=== PATIENT | male | born 1955 | race Caucasian/White ===

== ENCOUNTER 2016-07-20 10:23 | Inpatient (IN) ==
--- NOTE | 2016-07-20 11:00 | Emergency Department Note ---
START Narrative - START START: I examined this patient and my medical decision-making was reviewed with the CASINO GAMES DEALER/PA/Advanced Practice Nurse/Resident Physician. I agree with the documented findings, disposition and treatment plan as described except to the extent set forth below. I did see the patient spoke with them. Chest x-ray results pending. He does have decreased breath sounds bilaterally does have a history of COPD 1100 I did review the patient's EKG showing normal sinus rhythm with rate of 66 without acute ischemic change. 1102 Procedure: I did discuss risks and benefits - the patient does consent to placement of a right-sided chest tube. Timeout procedure was done. I did use a gown and facemask and shield and did place a right-sided Heimlich valve midclavicular line over the fourth rib after prepping and draping in the usual sterile fashion. I used 10ml of 1% lidocaine. There is good mist in the tube. This was attached to the waterseal and initially did have bubbles but then they stopped. The post procedure chest x-ray does not show significant reexpansion however now that the tubes have been readjusted and the bubbles in the Pleur- evac have resumed a repeat chest x-ray will be done. Results pending. I did speak with Dr. Guadarrama from thoracic the patient for consultation mouses spoke with Dr. Gomez who is the hospitalist who accepted the patient for admission 1255 I spoke with Thierry who feels like the lung is minimally more expanded on his view and rec IR place a CT more inferior so I spoke with IR and they will place tube today 1313
--- NOTE | 2016-07-20 13:17 | Emergency Department Note ---
Disposition Clinical Impression: Pneumothorax Qualifiers: Pneumothorax type: unspecified pneumothorax Qualified Code(s): J93.9 - Pneumothorax, unspecified Disposition: Admitted As Inpatient Condition: Fair Time of Disposition: 12:50 SOB HPI - General Chief Complaint: ED Shortness of Breath/Dyspnea Stated Complaint: JORGE L-poss pneumothorax Time Seen by Provider: 07/20/16 10:44 Source: patient, family Limitations: no limitations - History of Present Illness The patient is a 60-year-old male with past medical history significant for COPD , lung cancer, current tobacco abuse presents five-day history of right-sided chest pain. Patient states that the pain is worse with lying flat. Pain is better by sitting upright. Patient describes pain as sharp sensation to right chest and right upper quadrant. Patient states that he also woke up 4 mornings ago with gasping for air. He shows states that she placed the patient fresh air and set up his home oxygen, which she has not used for the last 2 years. Patient admits associated racing heart during the episode of dyspnea. Patient denies wheezing, denies cough. Patient was seen and evaluated for right upper quadrant pain and had a CT abdomen and pelvis. CT demonstrated a right pneumothorax. Patient was called today, and instructed to present to the emergency department for further management. - Related Data Home Medications Medication Instructions Recorded Confirmed Cholecalciferol (D-3) [Vitamin D] 2,000 unit PO DAILY 07/20/16 07/20/16 Allergies Allergy/AdvReac Type Severity Reaction Status Date / Time No Known Allergies Allergy Verified 07/20/16 10:30 All systems ED: reviewed and negative except as stated. Constitutional: Reports: as per HPI Eyes: Reports: as per HPI ENT ED: Reports: as per HPI Cardiovascular: Reports: as per HPI Respiratory: Reports: as per HPI Gastrointestinal: Reports: as per HPI Genitourinary: Reports: as per HPI Musculoskeletal: Reports: as per HPI Integumentary: Reports: as per HPI Neurological: Reports: as per HPI Psychiatric: Reports: as per HPI Endocrine: Reports: as per HPI Hematological/Lymphatic: Reports: as per HPI Allergic/Immunologic: Reports: as per HPI Past Medical History - Past Medical History Medical history: Reports: cancer, COPD, DVT, other Surgical history: Reports: herniorrhaphy, orthopedic, other, other Psychiatric history: Reports: no psych history - Social History Smoking Status: Current every day smoker Smokeless Tobacco Status: No Alcohol use: Reports: none Drug use: Reports: none Physical Exam - General Limitations: no limitations General appearance: alert, in no apparent distress - Head Head exam: atraumatic, normocephalic - Neck Neck exam: Present: normal inspection, full ROM, trachea midline, other (No carotid bruit) - Chest Chest inspection: Present: normal inspection, symmetric chest wall rise - Respiratory Respiratory exam: Present: other (Diminished breath sounds bilaterally. No wheezing, rales, or rhonchi.) - Cardiovascular Cardiovascular exam: Present: regular rate, normal rhythm, +S1, +S2. Absent: systolic murmur, diastolic murmur - Abdominal Exam Abdominal exam: Present: soft, Non-Tender, normal bowel sounds. Absent: distention, guarding - Extremities Exam Extremities exam: Present: normal inspection, full ROM - Back Exam Back exam: Present: normal inspection, full ROM - Neurological Exam Neurological exam: Present: alert, oriented X3 - Psychiatric Psychiatric exam: Present: normal affect, normal mood - Skin Skin exam: Present: warm, dry, intact Course Vital Signs Temperature 97.8 F 07/20/16 10:27 Pulse Rate 76 07/20/16 10:27 Respiratory Rate 18 07/20/16 10:27 Blood Pressure 129/81 07/20/16 10:27 O2 Sat by Pulse Oximetry 95 07/20/16 10:27 Temperature 97.8 F 07/20/16 10:27 Pulse Rate 67 07/20/16 12:33 Respiratory Rate 18 07/20/16 12:33 Blood Pressure 152/82 07/20/16 12:33 O2 Sat by Pulse Oximetry 97 07/20/16 12:33 Oxygen Delivery Oxygen Delivery Room Air Shortness of Breath/Dyspnea - [facility] Narrative Medical decision making narrative: Patient presented with a chest suggestive of right pneumothorax. On exam, patient has decreased breath sounds to bilateral lungs. Chest x-ray today demonstrates right pneumothorax with mild leftward shift of the mediastinum unchanged per previous exam. We will proceed with chest tube placement.
[2016-07-20] MEDS ORDERED: Naloxone 0.4 MG/ML INJ IVP PRN ×2 (13:31→14:47)
--- NOTE | 2016-07-20 14:23 | Electrocardiograph Report ---
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
[2016-07-20] MEDS ORDERED: Ondansetron 4 MG/2 ML VIAL IVP PRN (14:47)
[2016-07-20] MEDS ORDERED: *HR* Morphine 2 MG/ML SYRINGE IVP PRN (14:47)
[2016-07-20] MEDS ORDERED: Acetaminophen 325 MG TABLET PO PRN (14:47)
--- NOTE | 2016-07-20 15:00 | Internal Med History&Physical ---
Date of Encounter: 07/20/16 Time of Encounter: 14:57 Assessment and Plan (1) Pneumothorax Current visit: Yes Status: Acute Likely related to severe COPD, right-sided pneumothorax Continue suction to the chest tube, interventional radiology to place a second to Followed by the cardiothoracic surgery services Morphine for pain Omeprazole for GI prophylaxis and sequential compression devices for DVT prophylaxis. The patient will be admitted as inpatient, expected to stay more than 2 midnights. Full code. Time spent on this admission 40 minutes Qualifiers: Pneumothorax type: spontaneous, tension Qualified Code(s): J93.0 - Spontaneous tension pneumothorax (2) Cancer with unknown primary site Current visit: No Status: Chronic Metastatic cancer of unknown primary status post chemotherapy and right upper lobe of lobectomy Followed by oncology as outpatient (3) History of biliary stent insertion Current visit: No Status: Chronic Followed as outpatient History of chronic pneumobilia Considers starting antibiotics if signs of infection Order CBC and CMP (4) COPD (chronic obstructive pulmonary disease) Current visit: No Status: Chronic No exacerbation, continue duo nebs Qualifiers: COPD type: unspecified COPD Qualified Code(s): J44.9 - Chronic obstructive pulmonary disease, unspecified (5) Tobacco abuse Current visit: No Status: Acute Smoking cessation counseling given for 5 min . Nicotine patch ordered (6) Lung cancer Current visit: No Status: Acute Qualifiers: Laterality: right Lung location: unspecified part of lung Qualified Code( s): C34.91 - Malignant neoplasm of unspecified part of right bronchus or lung Internal Medicine - H&P: HPI Chief complaint: Shortness of breath Admitted From: Emergency Dept History of present illness: Mr. Eubanks is a 60 year old male with a past medical history of metastatic cancer with no primary found status post chemotherapy and partial lung resection , COPD not oxygen dependent, DVT in the left upper extremity in the past, alcohol use/abuse, tobacco use who had an evaluation yesterday due to chronic right upper quadrant pain. Apparently an ultrasound showed pneumobilia, CT scan of the abdomen was ordered and confirmed the diagnosis of chronic pneumobilia in the left hepatic lobe, at the same time a right-sided pneumothorax was evidenced. The patient was referred to the emergency room and a chest tube was plan placed in the anterior upper thorax. Patient is complaining of some mild pain 2 out of 10 in intensity. The chest x-ray taken after the placement of the chest tube did not show any improvement. Patient has been evaluated by the cardiothoracic surgery team and another chest tube will be placed by interventional radiology service. Blood pressure is 152/82, denies any use other symptoms otherwise Past Med Surg Social Fam HX - Past Medical History Medical history: cancer (Metastatic cancer to the pancreas, stomach, neck and lung status post lung partial resection of the upper right lobe and chemotherapy ), COPD (Not oxygen dependent), DVT (In the past, left upper extremity), hypertension, other (Tobacco use, alcohol abuse, chronic pneumobilia, GERD, depression, biliary obstruction) Psychiatric history: no psych history - Past Surgical History Surgical History: herniorrhaphy, orthopedic, other, other (Biliary stents is status post extraction, left lung partial lobectomy, ERCP, left lower extremity fracture) - Social History Smoking Status: Current every day smoker Packs per day: 5 cigarettes daily Smokeless Tobacco Status: No Alcohol use: none (Quit drinking 3 years ago, used to drink heavily) Drug use: none - Family History Father Living Status: Still Living Hx Family Endocrine Disorder: Yes - Additional Family History Additional family history: Father with hypertension and diabetes Internal Medicine - H&P: Meds Cholecalciferol (D-3) [Vitamin D] 2,000 unit PO DAILY 07/20/16 [History] Allergies No Known Allergies Allergy (Verified 07/20/16 10:30) All Systems PM: A 10-system review of systems was performed and is negative for pertinent findings except as documented above in the HPI. Review of systems: Feels still short of breath. Other systems out of the 10 reviewed were negative - Constitutional Vitals: Temp Pulse Resp BP Pulse Ox 97.8 F 63 18 131/87 97 07/20/16 10:27 07/20/16 14:02 07/20/16 14:02 07/20/16 14:02 07/20/16 14:02 General appearance: Present: A&O X 3, underweight - Head Head exam: Present: atraumatic, normocephalic - Eye Eye exam: Present: PERRL, conjuntiva pink, sclera anicteric Pupils: Present: PERRL - Neck Neck exam general surgery: Present: supple, trachea midline. Absent: lymphadenopathy - Respiratory Respiratory exam: Present: decreased breath sounds, CTAB. Absent: accessory muscle use, rales, rhonchi, wheezes Additional comments: Right upper chest chest tube - Cardiovascular Cardiovascular exam: Present: RRR, +S1, +S2. Absent: diastolic murmur, gallop, rubs, systolic murmur - GI/Abdominal GI/Abdominal exam: Present: normal bowel sounds, soft, no peritoneal signs. Absent: distended, tenderness - Extremities Exam Extremities exam: Present: warm, radial pulses palpable and symetrical. Absent : calf tenderness, cyanotic, pedal edema - Neurological Exam Neurological exam: Present: CN II-XII intact, oriented X3, no focal deficits. Absent: pronater drift, facial droop, speech deficit - Skin Skin exam: Present: dry, intact
[2016-07-20] MEDS: 0.9 % Sodium Chloride 500 ML IVC SCH ×2 (15:28→23:48)
[2016-07-20] MEDS: Nicotine 14 MG PATCH.TD24 TD SCH (15:32)
[2016-07-20] MEDS: Ipratropium/Albuterol Neb 3 ML IH SCH ×2 (16:08→21:24)
[2016-07-20 16:10] LABS: Basophils % 0.4 %; Eosinophils # 0.2 K/mcL (0.0-0.6); Eosinophils % 2.5 %; Hemoglobin 14.6 g/dL (12.9-16.9); Immature Granulocytes % 0.3 % (0-4); Lymphocytes # 1.4 K/mcL (0.6-4.6); Lymphocytes % 20.6 %; Mean Corpuscular HGB Conc 33.2 g/dL (31.6-35.5); Mean Corpuscular Hemoglobin 31.3 pg (28.0-33.3); Mean Corpuscular Volume 94.2 fL (83.0-100.0); Mean Platelet Volume 9.2 fL (9.4-12.4); Monocytes # 0.5 K/mcL (0.0-1.3); Monocytes % 7.8 %; Neutrophils # 4.7 K/mcL (1.6-8.9); Platelet Count 211 K/mcL (140-400); Red Blood Count 4.67 M/mcL (4.19-5.50); Red Cell Distribution Width 13.4 % (11.5-14.5); Segmented Neutrophils % 68.4 %
[2016-07-20] MEDS: *HR* Morphine 2 MG/ML SYRINGE IVP PRN ×3 (16:24→23:42)
[2016-07-20 16:28] LABS: Alanine Aminotransferase 18 Units/L (0-55); Albumin 3.7 g/dL (3.5-5.0); Alkaline Phosphatase 68 Units/L (38-126); Aspartate Amino Transferase 23 Units/L (5-34); BUN/Creatinine Ratio 17 (6-26); Bilirubin,Total 0.4 mg/dL (0.2-1.2); Blood Urea Nitrogen 14 mg/dL (8-26); Calcium 9.4 mg/dL (8.6-10.8); Carbon Dioxide 26 mEq/L (19-29); Chloride 106 mEq/L (98-109); Globulin 3.8 g/dL (2.4-3.5); Glucose 100 mg/dL (70-99); Osmolality,Calculated 291 (280-300); Potassium 4.3 mEq/L (3.5-4.5); Sodium 140 mEq/L (136-145); Total Protein 7.5 g/dL (6.0-8.3); eGFR For African Americans > 60 (> 60); eGFR For Non-African Americans > 60 (> 60)
--- NOTE | 2016-07-20 16:53 | Cardiothoracic Consult Note ---
Date of Encounter: 07/20/16 Time of Encounter: 16:53 Assessment and Plan (1) Pneumothorax Current Visit: Yes Status: Acute The patient is a 60-year-old man with a history of metastatic cancer from an unknown primary who was admitted to [facility] for treatment of a spontaneous right pneumothorax. He had a chest tube placed in the emergency department as well as a second one placed in the intervention radiology department due to incomplete reexpansion after the first chest tube. Both chest tubes are currently on suction. The chest x-ray should be followed in the morning and daily until the chest tubes are removed. The assessment and plan as outlined above was discussed with the patient and/or family members who expressed understanding and agreement. All questions were answered. Qualifiers: Pneumothorax type: spontaneous, tension Qualified Code(s): J93.0 - Spontaneous tension pneumothorax - History of Present Illness Consult date: 07/20/16 Requesting physician: Brad Shen Consult reason: Chest tube management. Chief complaint: Shortness of breath, dyspnea on exertion. History of present illness: Mr. Eubanks is a 60 year old man with a history of metastatic cancer due to an unknown primary site. The patient underwent a previous right upper lobe wedge resection at the [facility]. He experienced sudden onset of right-sided chest pain on Sunday, July 15, 2016. At that time the patient states that he was walking from the bathroom when he had sudden onset of right sided chest pain, shortness of breath, and dyspnea exertion. Initially he did not seek medical attention and instead used oxygen which he had from his previous lung resection. This helped improve the symptoms; however, the patient noticed profound shortness of breath and dyspnea exertion with any type of activity. He contacted his primary care physician who examined the patient and thought that he might have cholecystitis. Abdominal ultrasound revealed a normal gallbladder and the presence of "air around his pancreas". A follow-up abdominal CT showed normal intra-abdominal anatomy and a right spontaneous pneumothorax. The patient was called and told to come to the emergency department for evaluation. During the evaluation at [facility] emergency department the patient was noted to have a large right pneumothorax on chest x-ray. A small chest tube was placed in the emergency department with only minimal resolution of the right pneumothorax. A second chest tube was placed inferiorly in the interventional radiology department. The chest tubes were placed suction and I was asked to evaluate the patient for chest tube management. Past Med Surg Social Fam HX - Past Medical History Medical history: cancer (Metastatic cancer to the pancreas, stomach, neck and lung status post lung partial resection of the upper right lobe and chemotherapy ), COPD (Not oxygen dependent), DVT (In the past, left upper extremity), hypertension, other (Tobacco use, alcohol abuse, chronic pneumobilia, GERD, depression, biliary obstruction) Psychiatric history: no psych history - Past Surgical History Surgical History: herniorrhaphy (Left inguinal herniorrhaphy), orthopedic, other (Internal fixation of right lower extremity tibial/fibula fracture), other (Biliary stents S/P extraction, right lung partial lobectomy, ERCP, ) - Social History Smoking Status: Current every day smoker Packs per day: 5 cigarettes daily Smokeless Tobacco Status: No Alcohol use: none (Quit drinking 3 years ago, used to drink heavily) Drug use: none Occupational status: retired Current living situation: Home - Independent Activity Level: Independent ambulation Recent Out of Country Travel Within the Last 8 Weeks: No Exposure or Possible Exposure to Illness During Travel: No - Family History Father Living Status: Still Living Hx Family Endocrine Disorder: Yes Medications and Allergies Cholecalciferol (D-3) [Vitamin D] 2,000 unit PO DAILY 07/20/16 [History] Allergies No Known Allergies Allergy (Verified 07/20/16 10:30) All Systems Review: A 10-system review of systems was performed and is negative for pertinent findings except as documented above in the HPI. Physical Examination Vital Signs, Last 4 Hours Temp Pulse Resp BP Pulse Ox 07/20/16 16:08 18 97 07/20/16 15:47 97.7 F 61 18 147/84 97 General: Conversant, No Apparent Distress HEENT: Atraumatic, Normocephaly, Trachea midline Neck: No JVD, Normal carotid pulses Cardiac: Reg Rate and Rhythm, Normal S1 and S2, No Murmur Lungs: Normal Breath Sounds, No Wheeze, Rales, Rhonchi Neuro: Alert and responsive, No focal deficits noted, Motor nerves intact, Sensory nerves intact Vascular: Normal capillary refill Abdomen: Soft, Non-tender Skin: No rashes noted on visualized skin Musculoskeletal: No Chest Wall Tenderness Extremities: No Clubbing, No Cyanosis, No Edema, Normal Pulses Results 07/20/16 15:58 05/25/17 15:58 Lab Results, Last 24 hours 07/20/16 07/20/16 15:58 15:58 WBC 6.8 Hgb 14.6 Hct 44.0 Plt Count 211 Sodium 140 Potassium 4.3 Chloride 106 Carbon Dioxide 26 BUN 14 Creatinine 0.84 Glucose 100 H Calcium 9.4 Total Bilirubin 0.4 AST 23 ALT 18 Alkaline Phosphatase 68 - Imaging Chest Xray: image reviewed (Right pneumothorax.) Consult Discharge Plan - Plan Referrals: Meliza Cotton, OPERATIONS RESEARCH ANALYST [Primary Care Provider] -
[2016-07-21] MEDS: *HR* Morphine 2 MG/ML SYRINGE IVP PRN ×7 (02:50→22:09)
[2016-07-21 04:13] LABS: Hematocrit 39.5 % (37.5-50.1); Hemoglobin 13.3 g/dL (12.9-16.9); Mean Corpuscular HGB Conc 33.7 g/dL (31.6-35.5); Mean Corpuscular Hemoglobin 31.7 pg (28.0-33.3); Mean Platelet Volume 9.9 fL (9.4-12.4); Platelet Count 179 K/mcL (140-400); Red Cell Distribution Width 13.7 % (11.5-14.5)
[2016-07-21] MEDS: Ipratropium/Albuterol Neb 3 ML IH SCH ×4 (04:24→21:16)
[2016-07-21 04:25] LABS: Alanine Aminotransferase 13 Units/L (0-55); Albumin/Globulin Ratio 0.9 (1.1-2.2); Alkaline Phosphatase 57 Units/L (38-126); Aspartate Amino Transferase 20 Units/L (5-34); BUN/Creatinine Ratio 20 (6-26); Bilirubin,Total 0.4 mg/dL (0.2-1.2); Blood Urea Nitrogen 15 mg/dL (8-26); Calcium 8.4 mg/dL (8.6-10.8); Carbon Dioxide 24 mEq/L (19-29); Chloride 111 mEq/L (98-109); Globulin 3.5 g/dL (2.4-3.5); Glucose 92 mg/dL (70-99); Osmolality,Calculated 294 (280-300); Sodium 142 mEq/L (136-145); Total Protein 6.5 g/dL (6.0-8.3); eGFR For African Americans > 60 (> 60); eGFR For Non-African Americans > 60 (> 60)
[2016-07-21] MEDS: Nicotine 14 MG PATCH.TD24 TD SCH (09:42)
[2016-07-21] MEDS: Cholecalciferol (D-3) 1,000 UNIT TABLET PO SCH (09:42)
[2016-07-21] MEDS: 0.9 % Sodium Chloride 500 ML IVC SCH ×2 (09:45→19:00)
--- NOTE | 2016-07-21 10:12 | Internal Med Progress Note ---
<Abdiel Engel P - Last Filed: 07/21/16 14:49> Date of Encounter: 07/21/16 - Constitutional Vitals: Temp Pulse Resp BP Pulse Ox 97.7 F 60 18 121/77 98 07/21/16 07:00 07/21/16 07:00 07/21/16 07:00 07/21/16 07:00 07/21/16 09:00 Internal Medicine: Result - Labs CBC & Chem 7: 07/21/16 03:58 07/21/16 03:58 Labs: Short CBC 07/20/16 07/21/16 Range/Units 15:58 03:58 WBC 6.8 6.7 (4.3-11.1) K/mcL Hgb 14.6 13.3 (12.9-16.9) g/dL Hct 44.0 39.5 (37.5-50.1) % Plt Count 211 179 (140-400) K/mcL Neutrophils # 4.7 (1.6-8.9) K/mcL BMP 07/20/16 07/21/16 15:58 03:58 Sodium 140 142 Potassium 4.3 4.0 Chloride 106 111 H Carbon Dioxide 26 24 BUN 14 15 Creatinine 0.84 0.74 Glucose 100 H 92 Calcium 9.4 8.4 L Liver Function 07/20/16 07/21/16 Range/Units 15:58 03:58 Total Bilirubin 0.4 0.4 (0.2-1.2) mg/dL AST 23 20 (5-34) Units/L ALT 18 13 (0-55) Units/L Alkaline Phosphatase 68 57 (38-126) Units/L Albumin 3.7 3.0 L (3.5-5.0) g/dL - Impressions Impressions Chest X-Ray 07/21/16 09:43 IMPRESSION: 1. Interval addition of a right lateral pigtail pleural catheter. 2. Redemonstration of COPD. Interval resolution of a right lateral lung base pneumothorax. D/ / 07/21/2016 10:09:25 Jeremiah Earl MD / verónica Interpreting Provider: Jeremiah Earl MD Consult Discharge Plan - Plan Referrals: Meliza Cotton, NURSE SITTER [Primary Care Provider] - - Attending Attestation I examined this patient and my medical decision-making was reviewed with the BRAILLE PROOFREADER/PA/Advanced Practice Nurse/Resident Physician. I agree with the documented findings, disposition and treatment plan as described except to the extent set forth below. <Royce Oshea - Last Filed: 07/21/16 15:02> Date of Encounter: 07/21/16 Time of Encounter: 09:00 - Assessment and plan (1) Pneumothorax Current Visit: Yes Status: Acute Assessment and plan: The patient's right spontaneous pneumothorax is resolving. Continue chest tube to suction until the right apical pneumothorax resolves. Chest x-ray in the morning. Supplemental O2 via nasal cannula. Cardiothoracic consulted, appreciate their continued evaluation and recommendations. Qualifiers: Pneumothorax type: spontaneous, tension Qualified Code(s): J93.0 - Spontaneous tension pneumothorax (2) COPD (chronic obstructive pulmonary disease) Current Visit: No Status: Chronic Assessment and plan: Stable, no acute exacerbation. Duonebs scheduled. Qualifiers: COPD type: unspecified COPD Qualified Code(s): J44.9 - Chronic obstructive pulmonary disease, unspecified (3) Tobacco abuse Current Visit: No Status: Acute Assessment and plan: Encouraged to quit, briefly discuss cessation options. Patient showing interest in cessation. (4) History of cancer Current Visit: Yes Status: Chronic Assessment and plan: Stable. 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 Chemo in 2015. Remission for 1.5 years. (5) DVT prophylaxis Current Visit: No Status: Acute - Subjective Interval history: Patient seen and examined at bedside. States he is feeling much better and breathing better. He has two chest tubes in right side of chest, states mild tenderness, but no acute distress. - Constitutional Vitals: Temp Pulse Resp BP Pulse Ox 97.7 F 60 18 121/77 98 07/21/16 07:00 07/21/16 07:00 07/21/16 07:00 07/21/16 07:00 07/21/16 07:00 General appearance: Present: cooperative, A&O X 3, no acute distress, underweight, answers questions appropriately - Head Head exam: Present: atraumatic, normocephalic - Eye Eye exam: Present: EOMI, conjuntiva pink - ENT ENT exam: Present: mucous membranes moist - Neck Neck exam general surgery: Present: full ROM - Respiratory Respiratory exam: Present: CTAB. Absent: rales, respiratory distress, rhonchi, stridor, wheezes Additional comments: two chest tubes present; one in anterior right chest wall, one in lateral chest wall. - Cardiovascular Cardiovascular exam: Present: RRR - GI/Abdominal GI/Abdominal exam: Present: soft. Absent: firm, guarding, tenderness - Extremities Exam Extremities exam: Present: warm. Absent: cyanotic, pedal edema, tenderness - Neurological Exam Neurological exam: Present: alert, oriented X3, no focal deficits - Psychiatric Psychiatric exam: Present: normal affect, normal mood - Skin Skin exam: Present: dry, warm. Absent: cyanosis, rash Internal Medicine: Result - Labs CBC & Chem 7: 07/21/16 03:58 07/21/16 03:58 Labs: Short CBC 07/20/16 07/21/16 Range/Units 15:58 03:58 WBC 6.8 6.7 (4.3-11.1) K/mcL Hgb 14.6 13.3 (12.9-16.9) g/dL Hct 44.0 39.5 (37.5-50.1) % Plt Count 211 179 (140-400) K/mcL Neutrophils # 4.7 (1.6-8.9) K/mcL BMP 07/20/16 07/21/16 15:58 03:58 Sodium 140 142 Potassium 4.3 4.0 Chloride 106 111 H Carbon Dioxide 26 24 BUN 14 15 Creatinine 0.84 0.74 Glucose 100 H 92 Calcium 9.4 8.4 L Liver Function 07/20/16 07/21/16 Range/Units 15:58 03:58 Total Bilirubin 0.4 0.4 (0.2-1.2) mg/dL AST 23 20 (5-34) Units/L ALT 18 13 (0-55) Units/L Alkaline Phosphatase 68 57 (38-126) Units/L Albumin 3.7 3.0 L (3.5-5.0) g/dL - Impressions Impressions Chest X-Ray 07/21/16 09:43 IMPRESSION: 1. Interval addition of a right lateral pigtail pleural catheter. 2. Redemonstration of COPD. Interval resolution of a right lateral lung base pneumothorax. D/ / Jeremiah Earl MD / Jeremiah Earl MD Interpreting Provider: Jeremiah Earl MD
--- NOTE | 2016-07-21 10:40 | Cardiothoracic Progress Note ---
Date of Encounter: 07/21/16 Time of Encounter: 10:37 - Assessment and plan (1) Pneumothorax Current Visit: Yes Status: Acute The patient's right spontaneous pneumothorax is resolving. The chest tube should remain to suction until the right apical pneumothorax resolves. The chest x-ray will be repeated in the morning. The assessment and plan as outlined above was discussed with the patient and/or family members who expressed understanding and agreement. All questions were answered. Qualifiers: Pneumothorax type: spontaneous, tension Qualified Code(s): J93.0 - Spontaneous tension pneumothorax - Subjective Interval history: The patient is resting comfortably in his hospital bed. He has no respiratory complaints. Vital Signs, Last 4 Hours Temp Pulse Resp BP Pulse Ox 07/21/16 09:00 98 07/21/16 07:00 97.7 F 60 18 121/77 98 Oxgyen Flow Rate Oxygen Flow Rate (LPM) 2 Weight 07/19/16 07/20/16 07/21/16 23:59 23:59 23:59 Weight 63.1 kg - Physical Examination General: Conversant, No Apparent Distress Neck: No JVD, Normal carotid pulses Cardiac: Reg Rate and Rhythm, Normal S1 and S2, No Murmur Incision: No signs of infection, Dry/intact dressing Chest tubes: Minimal drainage, Other (No air leak.) Lungs: Normal Breath Sounds, No Wheeze, Rales, Rhonchi Neuro: Alert and responsive, No focal deficits noted Vascular: Normal capillary refill Musculoskeletal: No Chest Wall Tenderness Extremities: No Clubbing, No Cyanosis, No Edema - Labs 07/21/16 03:58 07/21/16 03:58 Lab Results, Last 24 hours 07/20/16 07/20/16 07/21/16 15:58 15:58 03:58 WBC 6.8 6.7 Hgb 14.6 13.3 Hct 44.0 39.5 Plt Count 211 179 Sodium 140 Potassium 4.3 Chloride 106 Carbon Dioxide 26 BUN 14 Creatinine 0.84 Glucose 100 H Calcium 9.4 Total Bilirubin 0.4 AST 23 ALT 18 Alkaline Phosphatase 68 07/21/16 03:58 WBC Hgb Hct Plt Count Sodium 142 Potassium 4.0 Chloride 111 H Carbon Dioxide 24 BUN 15 Creatinine 0.74 Glucose 92 Calcium 8.4 L Total Bilirubin 0.4 AST 20 ALT 13 Alkaline Phosphatase 57 - Imaging Chest Xray: image reviewed (Small right apical pneumothorax. Right basilar pneumothorax resolved.) Consult Discharge Plan - Plan Referrals: Meliza Cotton CNP [Primary Care Provider] -
[2016-07-22] MEDS: Ipratropium/Albuterol Neb 3 ML IH SCH ×4 (03:16→22:29)
[2016-07-22] MEDS: *HR* Morphine 2 MG/ML SYRINGE IVP PRN ×5 (03:29→21:25)
[2016-07-22 04:44] LABS: Basophils % 0.3 %; Eosinophils # 0.2 K/mcL (0.0-0.6); Eosinophils % 2.9 %; Hematocrit 38.6 % (37.5-50.1); Hemoglobin 12.8 g/dL (12.9-16.9); Immature Granulocytes % 0.5 % (0-4); Lymphocytes # 1.3 K/mcL (0.6-4.6); Lymphocytes % 20.6 %; Mean Corpuscular HGB Conc 33.2 g/dL (31.6-35.5); Mean Corpuscular Hemoglobin 31.9 pg (28.0-33.3); Mean Corpuscular Volume 96.3 fL (83.0-100.0); Mean Platelet Volume 10.1 fL (9.4-12.4); Monocytes # 0.7 K/mcL (0.0-1.3); Monocytes % 10.6 %; Neutrophils # 4.2 K/mcL (1.6-8.9); Platelet Count 144 K/mcL (140-400); Red Blood Count 4.01 M/mcL (4.19-5.50); Red Cell Distribution Width 13.8 % (11.5-14.5); Segmented Neutrophils % 65.1 %
--- NOTE | 2016-07-22 07:52 | Internal Med Progress Note ---
<Royce Oshea - Last Filed: 07/22/16 09:34> Date of Encounter: 07/22/16 Time of Encounter: 08:15 - Assessment and plan (1) Pneumothorax Current Visit: Yes Status: Acute Assessment and plan: The patient's right spontaneous pneumothorax appears resolved. Currently chest tubes to wall suction, will verify plan with cardiothoracic. Chest x-ray this morning showing no evidence of pneumothorax. Supplemental O2 via nasal cannula. Will continue to monitor after chest tubes removed. Cardiothoracic consulted, appreciate their continued evaluation and recommendations. Qualifiers: Pneumothorax type: spontaneous, tension Qualified Code(s): J93.0 - Spontaneous tension pneumothorax (2) COPD (chronic obstructive pulmonary disease) Current Visit: No Status: Chronic Assessment and plan: Stable, no acute exacerbation. Duonebs scheduled. Qualifiers: COPD type: unspecified COPD Qualified Code(s): J44.9 - Chronic obstructive pulmonary disease, unspecified (3) Tobacco abuse Current Visit: No Status: Acute Assessment and plan: Encouraged to quit, briefly discussed cessation options. Patient showed interest in cessation. (4) History of cancer Current Visit: Yes Status: Chronic Assessment and plan: Stable. 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 Chemo in 2015. Remission for 1.5 years. (5) DVT prophylaxis Current Visit: No Status: Acute - Subjective Interval history: Patient seen and examined at bedside. States his breathing is good, but notes feeling "weird" this morning, he believes this may be due to poor sleep last night. He has two chest tubes in right side of chest, states mild tenderness, but no acute distress. - Constitutional Vitals: Temp Pulse Resp BP Pulse Ox 97.8 F 68 16 119/73 99 07/22/16 03:31 07/22/16 03:31 07/22/16 03:31 07/22/16 03:31 07/22/16 03:31 General appearance: Present: cooperative, A&O X 3, no acute distress, underweight, answers questions appropriately - Head Head exam: Present: atraumatic, normocephalic - Eye Eye exam: Present: EOMI, conjuntiva pink - ENT ENT exam: Present: mucous membranes moist - Neck Neck exam general surgery: Present: full ROM - Respiratory Respiratory exam: Present: CTAB. Absent: rhonchi, wheezes Additional comments: two chest tubes present; one in anterior right chest wall, one in lateral chest wall. - GI/Abdominal GI/Abdominal exam: Present: soft. Absent: tenderness - Extremities Exam Extremities exam: Present: full ROM - Neurological Exam Neurological exam: Present: alert, oriented X3, no focal deficits. Absent: speech deficit - Psychiatric Psychiatric exam: Present: normal affect, normal mood - Skin Skin exam: Present: dry, normal color, warm. Absent: cyanosis, rash Internal Medicine: Result - Labs CBC & Chem 7: 07/22/16 04:08 07/21/16 03:58 Labs: Short CBC 07/22/16 Range/Units 04:08 WBC 6.5 (4.3-11.1) K/mcL Hgb 12.8 L (12.9-16.9) g/dL Hct 38.6 (37.5-50.1) % Plt Count 144 (140-400) K/mcL Neutrophils # 4.2 (1.6-8.9) K/mcL - Impressions Impressions Chest X-Ray 07/21/16 09:43 IMPRESSION: 1. Interval addition of a right lateral pigtail pleural catheter. 2. Redemonstration of COPD. Interval resolution of a right lateral lung base pneumothorax. D/ / 07/21/2016 10:09:25 Jeremiah Earl MD / verónica Interpreting Provider: Jeremiah Earl MD Chest X-Ray 07/22/16 06:00 IMPRESSION: No evident pneumothorax. The right-sided pigtail catheter remains. A catheter fragment overlies the right chest, as before. Increased left basilar atelectasis. D/ / 07/22/2016 07:19:26 Frederick Espinoza MD / sepideh Interpreting Provider: Frederick Espinoza MD - VTE Documentation of Mechanical Device: Intermittent pneumatic compression device Consult Discharge Plan - Plan Referrals: Meliza Cotton, LOBBY PORTER [Primary Care Provider] - <Abdiel Engel P - Last Filed: 05/27/17 13:16> Date of Encounter: 07/22/16 - Constitutional Vitals: Temp Pulse Resp BP Pulse Ox 97.8 F 68 16 119/73 95 07/22/16 03:31 07/22/16 03:31 07/22/16 10:22 07/22/16 03:31 07/22/16 10:22 Internal Medicine: Result - Labs CBC & Chem 7: 07/22/16 04:08 07/21/16 03:58 Labs: Short CBC 07/22/16 Range/Units 04:08 WBC 6.5 (4.3-11.1) K/mcL Hgb 12.8 L (12.9-16.9) g/dL Hct 38.6 (37.5-50.1) % Plt Count 144 (140-400) K/mcL Neutrophils # 4.2 (1.6-8.9) K/mcL - Impressions Impressions Chest X-Ray 07/22/16 06:00 IMPRESSION: No evident pneumothorax. The right-sided pigtail catheter remains. A catheter fragment overlies the right chest, as before. Increased left basilar atelectasis. D/ / 07/22/2016 07:19:26 Frederick Espinoza MD / sepideh Interpreting Provider: Frdeerick Espinoza MD - Attending Attestation I examined this patient and my medical decision-making was reviewed with the LITIGATION ATTORNEY ASSOCIATE/PA/Advanced Practice Nurse/Resident Physician. I agree with the documented findings, disposition and treatment plan as described except to the extent set forth below.
[2016-07-22] MEDS: Cholecalciferol (D-3) 1,000 UNIT TABLET PO SCH (08:57)
[2016-07-22] MEDS: Nicotine 14 MG PATCH.TD24 TD SCH (08:58)
--- NOTE | 2016-07-22 10:10 | Cardiothoracic Progress Note ---
Date of Encounter: 07/22/16 Time of Encounter: 10:09 - Assessment and plan (1) Pneumothorax Current Visit: Yes Status: Acute The patient's right spontaneous pneumothorax is resolving. The apical pneumothorax has resolved; however, he developed an air leak in the anterior chest tube overnight. The chest tubes were placed to waterseal. The chest x-ray will be repeated in the morning. The assessment and plan as outlined above was discussed with the patient and/or family members who expressed understanding and agreement. All questions were answered. Qualifiers: Pneumothorax type: spontaneous, tension Qualified Code(s): J93.0 - Spontaneous tension pneumothorax - Subjective Interval history: The patient is resting comfortably in his hospital bed. He has no respiratory complaints. Oxgyen Flow Rate Oxygen Flow Rate (LPM) 2 Clinical Data, last 8 Hours Output, Chest Tube Drainage 0 Amount [Right Upper Posterior Chest] Output, Chest Tube Drainage 20 Amount [Right Upper Anterior Chest] Output, Urine Amount 200 Weight 07/20/16 07/21/16 07/22/16 23:59 23:59 23:59 Weight 63.1 kg 64.4 kg - Physical Examination General: Conversant, No Apparent Distress Neck: No JVD, Normal carotid pulses Cardiac: Reg Rate and Rhythm, Normal S1 and S2, No Murmur Incision: No signs of infection, Dry/intact dressing Chest tubes: Minimal drainage, Air leak Lungs: Normal Breath Sounds, No Wheeze, Rales, Rhonchi Neuro: Alert and responsive, No focal deficits noted Vascular: Normal capillary refill Musculoskeletal: No Chest Wall Tenderness Extremities: No Clubbing, No Cyanosis, No Edema, Normal Pulses - Labs 07/22/16 04:08 07/21/16 03:58 Lab Results, Last 24 hours 07/22/16 04:08 WBC 6.5 Hgb 12.8 L Hct 38.6 Plt Count 144 - Imaging Chest Xray: image reviewed (No pneumothorax. Minimal atelectasis/infiltrates.) - VTE Documentation of Mechanical Device: Intermittent pneumatic compression device Consult Discharge Plan - Plan Referrals: Meliza Cotton, ESTIMATION MANAGER [Primary Care Provider] -
[2016-07-23] MEDS: *HR* Morphine 2 MG/ML SYRINGE IVP PRN ×2 (02:23→08:59)
[2016-07-23] MEDS: Ipratropium/Albuterol Neb 3 ML IH SCH ×2 (04:37→10:09)
[2016-07-23 08:10] VITALS: BP 119/74
[2016-07-23] MEDS: Nicotine 14 MG PATCH.TD24 TD SCH (08:59)
[2016-07-23] MEDS: Cholecalciferol (D-3) 1,000 UNIT TABLET PO SCH (08:59)
--- NOTE | 2016-07-23 09:03 | Cardiothoracic Progress Note ---
Date of Encounter: 07/23/16 Time of Encounter: 09:02 - Assessment and plan (1) Pneumothorax Current Visit: Yes Status: Acute The patient's right spontaneous pneumothorax has resolved. The remaining chest tube was removed. The patient may be discharged home later today. He should see me in the office in 1 month with a previsit chest x-ray. The assessment and plan as outlined above was discussed with the patient and/or family members who expressed understanding and agreement. All questions were answered. Qualifiers: Pneumothorax type: spontaneous, tension Qualified Code(s): J93.0 - Spontaneous tension pneumothorax - Subjective Interval history: The patient is resting comfortably in his hospital bed. He has no respiratory complaints. Vital Signs, Last 4 Hours Temp Pulse Resp BP Pulse Ox 07/23/16 08:08 98.2 F 77 16 119/74 96 Oxgyen Flow Rate Oxygen Flow Rate (LPM) 2 Clinical Data, last 8 Hours Output, Urine Amount 0 Output, Urine Amount 350 Weight 07/21/16 07/22/16 07/23/16 23:59 23:59 23:59 Weight 63.1 kg 64.4 kg 64.4 kg - Physical Examination General: Conversant, No Apparent Distress Neck: No JVD, Normal carotid pulses Cardiac: Reg Rate and Rhythm, Normal S1 and S2, No Murmur Incision: No signs of infection, Dry/intact dressing Chest tubes: Minimal drainage, Other (No air leak.) Lungs: Normal Breath Sounds, No Wheeze, Rales, Rhonchi Neuro: Alert and responsive, No focal deficits noted Vascular: Normal capillary refill Musculoskeletal: No Chest Wall Tenderness Extremities: No Clubbing, No Cyanosis, No Edema - Labs 07/22/16 04:08 07/21/16 03:58 - Imaging Chest Xray: image reviewed (No pneumothorax.) - VTE Documentation of Mechanical Device: Intermittent pneumatic compression device Consult Discharge Plan - Plan Referrals: Meliza Cottno, COLLATERAL SPECIALIST [Primary Care Provider] -
--- NOTE | 2016-07-23 10:42 | Discharge Summary ---
<Royce Oshea - Last Filed: 07/23/16 14:11> Date of Encounter: 07/23/16 Time of Encounter: 09:10 - Discharge Diagnosis (1) Pneumothorax Priority: Primary Status: Acute Qualifiers: Pneumothorax type: spontaneous, tension Qualified Code(s): J93.0 - Spontaneous tension pneumothorax (2) COPD (chronic obstructive pulmonary disease) Priority: Secondary Status: Chronic Qualifiers: COPD type: unspecified COPD Qualified Code(s): J44.9 - Chronic obstructive pulmonary disease, unspecified (3) Tobacco abuse Priority: Secondary Status: Acute (4) History of cancer Priority: Secondary Status: Chronic (5) DVT prophylaxis Priority: Secondary Status: Acute - Discharge Medications Home Medications: Cholecalciferol (D-3) [Vitamin D] 2,000 unit PO DAILY 07/20/16 [History] Allergies/Adverse Reactions: Allergies No Known Allergies Allergy (Verified 07/20/16 10:30) Date of admission: 07/20/16 14:47 Primary care physician: Meliza Cotton Consults: 07/20/16 14:52 Consult to Cardiothoracic Surgery [CONS] Routine Consulting Provider: Cardiothoracic Surgery [place] Reason for Consult: Right pneumothorax Call Completed: Yes Discharging clinician: Abdiel Engel Anticipated date of discharge: 07/23/16 - Patient Status Disposition: Home, Self-Care Condition: Fair Functional capacity at discharge: independent ambulation Overall status at discharge: patient is back to baseline - Discharge Instructions Instructions: Chronic Obstructive Pulmonary Disease (DC) Follow Up With: Meliza Cotton, JESSICA [Primary Care Provider] - Additional Instructions: Do not remove dressing until Sunday, at that time you can then shower. Follow up with Dr. Guadarrama, cardiothoracic surgery, in 1 month. - Diet and Activity Activity: increase activity as tolerated Diet: advance to your usual diet Interval History: Patient seen and examined this AM. Denies any chest pain, shortness of breath, dizziness, or nausea. Anterior chest tube came out overnight, Lateral tube removed this AM during examination by Dr. Guadarrama. Hospital course: Mr. Eubanks is a 60 year old male with a past medical history of metastatic cancer with no primary found status, post chemotherapy and partial lung resection, COPD, tobacco use, history of LUE DVT, alcohol use/abuse. Seen as outpatient for RUQ pain, ultrasound showed pneumobilia, CT scan of the abdomen was ordered and confirmed the diagnosis of chronic pneumobilia in the left hepatic lobe, at the same time a right-sided pneumothorax was seen. The patient was referred to the emergency room, chest tubes placed in the anterior upper thorax and lateral mid thorax. Patient evaluated by cardiothoracic surgery team , Dr. Guadarrama. Xrays followed showing resolution of pneumonthorax, tube removed this AM, cardiothoracic signed off with follow up in 1 month in outpatient clinic. Time spent discussing smoking cessation with patient: 3 to 10 minutes - Time Spent with Patient Total time spent providing and/or coordinating discharge services: Less than 30 minutes - Constitutional Vitals: Temp Pulse Resp BP Pulse Ox 98.2 F 77 16 119/74 95 07/23/16 08:08 07/23/16 08:08 07/23/16 10:09 07/23/16 08:08 07/23/16 10:09 General appearance: Present: cooperative, A&O X 3, no acute distress, underweight, answers questions appropriately - Head Head exam: Present: atraumatic, normocephalic - Eye Eye exam: Present: EOMI, conjuntiva pink - ENT ENT exam: Present: mucous membranes moist - Neck Neck exam general surgery: Present: full ROM, supple - Respiratory Respiratory exam: Present: CTAB. Absent: rhonchi, wheezes - Cardiovascular Cardiovascular exam: Present: RRR - GI/Abdominal GI/Abdominal exam: Present: soft. Absent: guarding, tenderness - Extremities Exam Extremities exam: Present: warm. Absent: pedal edema, tenderness - Neurological Exam Neurological exam: Present: alert, oriented X3, no focal deficits - Psychiatric Psychiatric exam: Present: normal affect, normal mood - Skin Skin exam: Present: dry, normal color, warm. Absent: cyanosis, rash - VTE Documentation of Mechanical Device: Intermittent pneumatic compression device <Abdiel Engel - Last Filed: 07/23/16 16:11> Date of Encounter: 07/23/16 Date of admission: 07/20/16 14:47 Primary care physician: Meliza Cotton Consults: 07/20/16 14:52 Consult to Cardiothoracic Surgery [CONS] Routine Consulting Provider: Cardiothoracic Surgery [place] Reason for Consult: Right pneumothorax Call Completed: Yes Hospital course: Mr. Eubanks is a 60 year old male - Time Spent with Patient Total time spent providing and/or coordinating discharge services: - Constitutional Vitals: Temp Pulse Resp BP Pulse Ox 98.2 F 77 16 119/74 95 07/23/16 08:08 07/23/16 08:08 07/23/16 10:09 07/23/16 08:08 07/23/16 10:09 - Attending Attestation I examined this patient and my medical decision-making was reviewed with the ACRYLIC FABRICATOR/PA/Advanced Practice Nurse/Resident Physician. I agree with the documented findings, disposition and treatment plan as described except to the extent set forth below.
[2016-07-23] MEDS ORDERED: *HR* OxyCODONE Immed Rel 5 MG TABLET PO ONE (13:11)
== END 2016-07-23 15:13 | disposition home or self-care (01) | DRG 201 ==
LOC: 2NENU 10:23 → EMEROO 10:23 → 2NENU 14:29
PROVIDERS: ADMIT Internal Medicine; ATTEND Internal Medicine

== ENCOUNTER 2016-08-09 06:09 | Inpatient (IN) ==
[2016-08-09] MEDS ORDERED: 0.9 % Sodium Chloride 1,000 ML IVC ONE ×3 (06:35→17:03)
[2016-08-09] MEDS ORDERED: *HR* HYDROmorphone (PF) 1 MG/ML SYRINGE IVP ONE (06:35)
--- NOTE | 2016-08-09 06:39 | Emergency Department Note ---
START Narrative - START START: Start note: 60-year-old male presents with right sided chest discomfort from the flank to the right chest area and some mild shortness of breath since Sunday. Worse over the past day or so. Was treated at [facility] at the end of June for spontaneous pneumothorax on the right and had a chest tube by Dr. Guadarrama. Patient says it feels a little bit different. Abdomen essentially benign. His EKG shows tachycardia at 109. Assessment the patient at the daytime ED crew of doctors Darrion Rivas will provide formal evaluation for this patient. I ordered IV fluids IV analgesics supplemental oxygen and PA lateral chest x-ray. Patient stable condition. To be seen by the daytime team in 20 minutes.
[2016-08-09] MEDS ORDERED: Ipratropium/Albuterol Neb 3 ML IH ONE (07:02)
--- NOTE | 2016-08-09 07:18 | Emergency Department Note ---
Disposition Clinical Impression: Pneumonia Qualifiers: Pneumonia type: due to unspecified organism Laterality: right Lung location: unspecified part of lung Qualified Code(s): J18.9 - Pneumonia, unspecified organism Disposition: Admitted As Inpatient Condition: Fair SOB HPI - General Chief Complaint: ED Shortness of Breath/Dyspnea Stated Complaint: right side pain/landen Time Seen by Provider: 08/09/16 06:54 Source: patient Limitations: no limitations Nursing Notes Reviewed: Yes Vital Signs Reviewed: Yes - History of Present Illness Patient here for evaluation of right-sided chest pain. Patient states that he was recently here and admitted for pneumothorax. Dr. Guadarrama had placed chest tubes. Patient began experiencing decreased exertional capacity beginning on Sunday with increased amounts of pain. He denies productive cough. Subjective fever. Denies exertional chest pain. Pain worse with deep breaths. Worse with lying down. Chest pain has been constant with minimal relief. - Related Data Home Medications Medication Instructions Recorded Confirmed No Known Home Drugs 08/09/16 08/09/16 Allergies Allergy/AdvReac Type Severity Reaction Status Date / Time No Known Allergies Allergy Verified 08/09/16 06:11 Review of Systems: CONSTITUTIONAL: No weight loss, fever, chills, weakness or fatigue. HEENT: Eyes: No visual changes. Ears, Nose, Throat: No hearing loss, difficulty talking or unable to swallow. SKIN: No rash or itching. CARDIOVASCULAR: No chest pain, chest pressure or chest discomfort. No palpitations or edema. RESPIRATORY: Shortness of breath with exertion. GASTROINTESTINAL: No anorexia, nausea, vomiting or diarrhea. No abdominal pain or blood. GENITOURINARY: No burning on urination or hematuria. NEUROLOGICAL: No headache, dizziness, syncope, paralysis, ataxia, numbness or tingling in the extremities. No change in bowel or bladder control. MUSCULOSKELETAL: No muscle pain, back pain, joint pain or stiffness. Past Medical History - Past Medical History Medical history: Reports: cancer, COPD, DVT, hypertension, other Surgical history: Reports: herniorrhaphy, orthopedic, other, other Psychiatric history: Reports: no psych history - Social History Smoking Status: Current every day smoker Smokeless Tobacco Status: No Alcohol use: Reports: none Drug use: Reports: none Physical Exam General appearance: NAD, conversant Eyes: anicteric sclerae, moist conjunctivae; PERRL HENT: Atraumatic; oropharynx clear with moist mucous membranes and no mucosal ulcerations Neck: Normal inspection; Trachea midline; FROM, supple Lungs: Rhonchi in the left base. CV: RRR, no MRGs Abdomen: Soft, non-tender; no rebound or gaurding Extremities: No peripheral edema or extremity lymphadenopathy Skin: Normal temperature; no rash, ulcers or lesions Psych: Appropriate mood and affect Neuro: alert and oriented to person, place and time - General Limitations: no limitations General appearance: alert Course Course Narrative: Patient taken over from the scene shifter. Initial chest x-ray was ordered showing a right lower lobe pneumonia. Patient was recently admitted to the hospital for pneumothorax with chest tube placement. Patient is tachycardic with systolic prep blood pressure in the mid 90s. Patient meets sepsis criteria as well as HCAP. Blood cultures and antibiotics given. 2 L of fluid given. Lactates ordered. Vital Signs Temperature 98 F 08/09/16 06:11 Pulse Rate 115 08/09/16 06:11 Respiratory Rate 24 08/09/16 06:11 Blood Pressure 93/60 08/09/16 06:11 O2 Sat by Pulse Oximetry 95 08/09/16 06:11 Temperature 99 F 08/09/16 15:24 Pulse Rate 109 08/09/16 15:24 Respiratory Rate 16 08/09/16 15:24 Blood Pressure 113/81 08/09/16 15:24 O2 Sat by Pulse Oximetry 97 08/09/16 15:24 Oxygen Delivery Oxygen Delivery Nasal Cannula Shortness of Breath/Dyspnea - Lab Data Result diagrams: 08/09/16 08:38 08/09/16 08:38 Lab Results 08/09/16 08/09/16 08/09/16 Range/Units 08:38 08:38 08:38 WBC 26.2 H (4.3-11.1) K/mcL RBC 4.04 L (4.19-5.50) M/mcL Hgb 12.8 L (12.9-16.9) g/dL Hct 38.2 (37.5-50.1) % MCV 94.6 (83.0-100.0) fL MCH 31.7 (28.0-33.3) pg MCHC 33.5 (31.6-35.5) g/dL RDW 13.2 (11.5-14.5) % Plt Count 192 (140-400) K/mcL MPV 9.4 (9.4-12.4) fL Seg Neutrophils % 75.0 % Band Neutrophils % 17.0 H (0-4) % Lymphocytes % 6.0 % Monocytes % 2.0 % Neutrophils # 24.1 H (1.6-8.9) K/mcL Lymphocytes # 1.6 (0.6-4.6) K/mcL Monocytes # 0.5 (0.0-1.3) K/mcL Platelet Estimate Normal (Normal) PT 14.7 H (9.4-12.1) Seconds INR 1.4 Sodium 138 (136-145) mEq/L Potassium 3.3 L (3.5-4.5) mEq/L Chloride 109 (98-109) mEq/L Carbon Dioxide 20 (19-29) mEq/L BUN 11 (8-26) mg/dL Creatinine 0.81 (0.72-1.25) mg/dL Est GFR ( Amer) > 60 (> 60) Est GFR (Non-Af Amer) > 60 (> 60) BUN/Creatinine Ratio 14 (6-26) Glucose 144 H (70-99) mg/dL Calculated Osmolality 288 (280-300) Lactic Acid (0.5-2.2) mmol/L Calcium 8.9 (8.6-10.8) mg/dL Phosphorus 2.0 L (2.3-4.7) mg/dL Magnesium 1.1 L (1.6-2.6) mg/dL Total Bilirubin 1.3 H (0.2-1.2) mg/dL Direct Bilirubin 0.6 H (0.0-0.5) mg/dL Indirect Bilirubin 0.7 (0.0-1.2) mg/dL AST 12 (5-34) Units/L ALT 11 (0-55) Units/L Alkaline Phosphatase 86 (38-126) Units/L Troponin I (0-0.03) ng/mL Serum Total Protein 6.7 (6.0-8.3) g/dL Albumin 2.8 L (3.5-5.0) g/dL Globulin 3.9 H (2.4-3.5) g/dL Albumin/Globulin Ratio 0.7 L (1.1-2.2) 08/09/16 08/09/16 08/09/16 Range/Units 08:38 08:38 10:38 WBC (4.3-11.1) K/mcL RBC (4.19-5.50) M/mcL Hgb (12.9-16.9) g/dL Hct (37.5-50.1) % MCV (83.0-100.0) fL MCH (28.0-33.3) pg MCHC (31.6-35.5) g/dL RDW (11.5-14.5) % Plt Count (140-400) K/mcL MPV (9.4-12.4) fL Seg Neutrophils % % Band Neutrophils % (0-4) % Lymphocytes % % Monocytes % % Neutrophils # (1.6-8.9) K/mcL Lymphocytes # (0.6-4.6) K/mcL Monocytes # (0.0-1.3) K/mcL Platelet Estimate (Normal) PT (9.4-12.1) Seconds INR Sodium (136-145) mEq/L Potassium (3.5-4.5) mEq/L Chloride (98-109) mEq/L Carbon Dioxide (19-29) mEq/L BUN (8-26) mg/dL Creatinine (0.72-1.25) mg/dL Est GFR ( Amer) (> 60) Est GFR (Non-Af Amer) (> 60) BUN/Creatinine Ratio (6-26) Glucose (70-99) mg/dL Calculated Osmolality (280-300) Lactic Acid 2.4 H 3.4 H (0.5-2.2) mmol/L Calcium (8.6-10.8) mg/dL Phosphorus (2.3-4.7) mg/dL Magnesium (1.6-2.6) mg/dL Total Bilirubin (0.2-1.2) mg/dL Direct Bilirubin (0.0-0.5) mg/dL Indirect Bilirubin (0.0-1.2) mg/dL AST (5-34) Units/L ALT (0-55) Units/L Alkaline Phosphatase (38-126) Units/L Troponin I 0.00 (0-0.03) ng/mL Serum Total Protein (6.0-8.3) g/dL Albumin (3.5-5.0) g/dL Globulin (2.4-3.5) g/dL Albumin/Globulin Ratio (1.1-2.2) Attestation Statement - Attestation Attestation: I examined this patient and my medical decision-making was reviewed with the SPECTROGRAPHER/PA/Advanced Practice Nurse/Resident Physician. I agree with the documented findings, disposition and treatment plan as described except to the extent set forth below. Patient to ED with right-sided chest wall pain. Jaw pain. Patient recently admitted for pneumothorax with chest tube placement. Patient is a smoker. No fever. Nonproductive cough. Does have dyspnea on exertion. On examination he has diffuse wheezing. Plan. Patient is a chest x-ray shows a right lower lobe infiltrate. Starting hospital-acquired antibiotics. 30 minutes of critical care exclusive of separately billable procedures.
[2016-08-09] MEDS ORDERED: Piperacillin/Tazobactam 3.375 GM in D5% in Water (Mini-Bag+) 100 ML IVPB ONE (07:38)
[2016-08-09] MEDS ORDERED: Vancomycin 1,000 MG in D5% in Water 250 ML IVPB ONE (07:39)
[2016-08-09] MEDS ORDERED: Levofloxacin 750 MG/150 ML 750 MG/150 ML BAG IVPB ONE (07:39)
[2016-08-09 08:55] LABS: Hemoglobin 12.8 g/dL (12.9-16.9)
[2016-08-09 09:01] LABS: INR 1.4; Prothrombin Time 14.7 Seconds (9.4-12.1)
[2016-08-09 09:05] LABS: Hematocrit 38.2 % (37.5-50.1); Mean Corpuscular HGB Conc 33.5 g/dL (31.6-35.5); Mean Corpuscular Hemoglobin 31.7 pg (28.0-33.3); Mean Corpuscular Volume 94.6 fL (83.0-100.0); Mean Platelet Volume 9.4 fL (9.4-12.4); Platelet Count 192 K/mcL (140-400); Red Blood Count 4.04 M/mcL (4.19-5.50); Red Cell Distribution Width 13.2 % (11.5-14.5)
[2016-08-09 09:16] LABS: Alanine Aminotransferase 11 Units/L (0-55); Albumin 2.8 g/dL (3.5-5.0); Albumin/Globulin Ratio 0.7 (1.1-2.2); Alkaline Phosphatase 86 Units/L (38-126); Aspartate Amino Transferase 12 Units/L (5-34); BUN/Creatinine Ratio 14 (6-26); Bilirubin,Direct 0.6 mg/dL (0.0-0.5); Bilirubin,Indirect 0.7 mg/dL (0.0-1.2); Bilirubin,Total 1.3 mg/dL (0.2-1.2); Blood Urea Nitrogen 11 mg/dL (8-26); Calcium 8.9 mg/dL (8.6-10.8); Carbon Dioxide 20 mEq/L (19-29); Chloride 109 mEq/L (98-109); Globulin 3.9 g/dL (2.4-3.5); Glucose 144 mg/dL (70-99); Magnesium 1.1 mg/dL (1.6-2.6); Osmolality,Calculated 288 (280-300); Potassium 3.3 mEq/L (3.5-4.5); Sodium 138 mEq/L (136-145); Total Protein 6.7 g/dL (6.0-8.3); eGFR For African Americans > 60 (> 60); eGFR For Non-African Americans > 60 (> 60)
[2016-08-09 09:43] LABS: Lymphocytes # 1.6 K/mcL (0.6-4.6); Monocytes # 0.5 K/mcL (0.0-1.3); Neutrophils # 24.1 K/mcL (1.6-8.9); Platelet Estimate Normal (Normal)
[2016-08-09] MEDS ORDERED: Acetaminophen 325 MG TABLET PO PRN (11:08)
[2016-08-09] MEDS ORDERED: *HR* HYDROmorphone (PF) 1 MG/ML SYRINGE IVP PRN (11:08)
[2016-08-09] MEDS ORDERED: Naloxone 0.4 MG/ML INJ IVP PRN (11:08)
[2016-08-09] MEDS ORDERED: Ondansetron ODT 4 MG TAB.RAPDIS SL PRN (11:08)
[2016-08-09] MEDS ORDERED: Albuterol 2.5 MG/3 ML NEBULIZER IH PRN (11:14)
--- NOTE | 2016-08-09 11:20 | Internal Med History&Physical ---
<Henrry Head - Last Filed: 08/09/16 19:49> Date of Encounter: 08/09/16 Internal Medicine - H&P: HPI History of present illness: Mr. Eubanks is a 60 year old male Internal Medicine - H&P: Meds No Known Home Drugs 08/09/16 [History] Allergies No Known Allergies Allergy (Verified 08/09/16 06:11) All Systems PM: A 10-system review of systems was performed and is negative for pertinent findings except as documented above in the HPI. - Constitutional Vitals: Temp Pulse Resp BP Pulse Ox 98 F 119 16 106/71 96 08/09/16 19:30 08/09/16 19:30 08/09/16 19:30 08/09/16 19:30 08/09/16 19:30 Internal Med - H&P Results - Labs CBC & Chem 7: 08/09/16 08:38 08/09/16 08:38 Labs: Urine 08/09/16 Range/Units 11:45 Urine Color Yellow (Yellow) Urine Clarity Clear (Clear) Urine pH 6.0 (5.0-8.0) pH Units Ur Specific [place] 1.013 (1.010-1.025) Urine Protein Negative (Neg-Trace) mg/dL Urine Glucose (UA) 250 H (Normal) mg/dL - Attending Attestation I examined this patient and my medical decision-making was reviewed with the Advanced Practice Nurse. I agree with the documented findings, disposition and treatment plan as described except to the extent set forth below. Lung exam reveals diminished breath sounds throughout, prolonged expiratory phase. No wheezing. Plan: Broad-spectrum IV antibiotics for healthcare associated pneumonia. Inhaled bronchodilators. I have advised smoking cessation. <Vira Mars - Last Filed: 08/09/16 23:00> Date of Encounter: 08/09/16 Time of Encounter: 11:16 Assessment and Plan (1) HCAP (healthcare-associated pneumonia) Current visit: Yes Status: Acute Patient with recent admission for pneumothorax chest tube placement one month ago. Presents today with right-sided chest pain and shortness of breath, chest x-ray shows right lower lobe pneumonia. Vanco, Zosyn, and levaquin for HCAP and sepsis Titrate oxygen to maintain saturation greater than 92% DuoNeb treatments 4 times a day Albuterol every 2 hrs when necessary IV fluids 0.9NS at 125mL/hr (2) Sepsis Current visit: Yes Status: Acute Patient with right lower lobe pneumonia seen on chest x-ray. Elevated white blood cell count of 26.2, tachycardic with heart rate in the 110s to 120s, lactate elevated to 2.4 and recheck was 3.4, meeting criteria for sepsis. Blood cultures drawn and sent Patient given 2 L of fluid bolus, continue with IV fluids 0.9 normal saline at 125 mL per hour. Started on broad-spectrum antibiotics with Levaquin, Vanc, and Zosyn. We will recheck lactate in 2 hours. Qualifiers: Sepsis type: sepsis due to unspecified organism Qualified Code(s): A41.9 - Sepsis, unspecified organism (3) Hypomagnesemia Current visit: Yes Status: Acute Magnesium of 1.1. Patient given 2 g of magnesium IV piggyback. Recheck magnesium with morning labs. (4) COPD (chronic obstructive pulmonary disease) Current visit: No Status: Chronic Patient with history of COPD, but reports he is not on any medications or inhalers at home. DuoNeb treatments 4 times a day Albuterol nebulizer every 2 hours when necessary Qualifiers: COPD type: unspecified COPD Qualified Code(s): J44.9 - Chronic obstructive pulmonary disease, unspecified (5) Hypokalemia Current visit: No Status: Acute Potassium of 3.3. 40 mEq of potassium by mouth ordered. Recheck potassium with morning labs. (6) Tobacco abuse Current visit: No Status: Acute Patient continues to smoke 4-5 cigarettes a day despite history of cancer, and COPD. Discussed smoking cessation and offered encouragement. Patient reports he is trying to quit and has cut back from 1 pack per day. Smoking cessation education ordered, nicotine patch ordered. (7) History of cancer Current visit: No Status: Chronic (8) DVT prophylaxis Current visit: No Status: Acute Antiembolic stockings Lovenox 40 mg subcutaneous daily Internal Medicine - H&P: HPI Chief complaint: chest pain, shortness of breath Admitted From: Emergency Dept Plans for Post Hospital Care: Home History of present illness: Mr. Eubanks is a 60 year old male with COPD, history of metastatic cancer status post right upper lobe lobectomy, and chemotherapy, now in remission, recent admission for pneumothorax with chest tube placement last month, who presented to the emergency department today with complaints of right-sided chest pain and shortness of breath. Patient reports that the pain started on Sunday, reports it is constant, sharp, worse with taking deep breaths, coughing and laying down, and has worsened over time. Cough has been non-productive and he reports he has been trying not to cough due to the pain it caused. He reports increased shortness of breath at the same time of the onset of this right-sided chest pain. He reports chills and sweats, body aches. He denies decreased appetite, palpitations, lightheadedness, numbness or tingling, nausea or vomiting, abdominal pain or diarrhea. Evaluation in the emergency department included a chest x-ray which showed right lower lobe pneumonia. His white blood cell count was elevated at 26.2 he was tachycardic with heart rate 110s to 120s, he is hypotensive with blood pressure in the 90s systolic. Magnesium was low at 1.1, he was also hypokalemic with potassium of 3.3. Lactate was elevated at 2.4, recheck of lactate was 3.4. He is given 2 L of fluid, blood cultures were drawn, and he was started on broad-spectrum antibiotics for HCAP and sepsis. On exam, patient alert and oriented, in no acute distress. Heart had tachycardic, regular rhythm. Lungs are mostly clear with some fine crackles in the right base. Past Med Surg Social Fam HX - Past Medical History Medical history: cancer, COPD, DVT, other Psychiatric history: no psych history - Past Surgical History Surgical History: cancer surgery (right upper lung lobectomy), herniorrhaphy, orthopedic, other, other - Social History Smoking Status: Current every day smoker Packs per day: <1 Smokeless Tobacco Status: No Alcohol use: none Drug use: none - Family History Father Living Status: Still Living Hx Family Endocrine Disorder: Yes Mother Living Status: Still Living All Systems PM: A 10-system review of systems was performed and is negative for pertinent findings except as documented above in the HPI. - Constitutional Constitutional: chills, malaise, no fever(s), no night sweats - EENT Eyes: no change in vision, no discharge, no pain, no photophobia Ears: no ear discharge, no ear pain, no tinnitus Nose, mouth and throat: no dysphagia, no nasal discharge, no neck pain, no sore throat - Cardiovascular Cardiovascular ROS IM: chest pain (right sided), diaphoresis, dyspnea, dyspnea on exertion, no lightheadedness, no palpitations, no syncope - Respiratory Respiratory: dyspnea, dyspnea on exertion, no cough, no wheezing, no excessive phlegm production - Gastrointestinal Gastrointestinal: no abdominal pain, no diarrhea, no hematemesis, no hematochezia, no melena, no nausea, no vomiting - Musculoskeletal Musculoskeletal ROS IM: no numbness, no tingling - Integumentary Integumentary IM: no rash, no unusual bruising - Neurological Neurological ROS: no confusion, no convulsions, no focal weakness, no numbness, no tingling, no tremor(s) - Hematologic/Lymphatic Hematologic/Lymphatic: no easy bruising - Constitutional Vitals: Temp Pulse Resp BP Pulse Ox 97.7 F 98 16 101/68 97 08/09/16 10:44 08/09/16 10:44 08/09/16 10:44 08/09/16 10:44 08/09/16 10:44 General appearance: Present: A&O X 3, pleasant, no acute distress - Head Head exam: Present: atraumatic, normocephalic - Eye Eye exam: Present: PERRL, conjuntiva pink, sclera anicteric Pupils: Present: PERRL - Neck Neck exam general surgery: Present: supple, trachea midline. Absent: lymphadenopathy - Respiratory Respiratory exam: Present: rales (right base), tachypnea. Absent: accessory muscle use, rhonchi, wheezes - Cardiovascular Cardiovascular exam: Present: RRR, +S1, +S2. Absent: diastolic murmur, gallop, rubs, systolic murmur - GI/Abdominal GI/Abdominal exam: Present: normal bowel sounds, soft, no peritoneal signs. Absent: distended, tenderness - Extremities Exam Extremities exam: Present: warm, radial pulses palpable and symetrical. Absent : calf tenderness, cyanotic, pedal edema - Neurological Exam Neurological exam: Present: CN II-XII intact, oriented X3, no focal deficits. Absent: facial droop, speech deficit - Skin Skin exam: Present: dry, intact Internal Med - H&P Results - Labs CBC & Chem 7: 08/09/16 08:38 08/09/16 08:38 Labs: All Lab Results (24 Hours) 08/09/16 08/09/16 08/09/16 Range/Units 08:38 08:38 08:38 WBC 26.2 H (4.3-11.1) K/mcL RBC 4.04 L (4.19-5.50) M/mcL Hgb 12.8 L (12.9-16.9) g/dL Hct 38.2 (37.5-50.1) % MCV 94.6 (83.0-100.0) fL MCH 31.7 (28.0-33.3) pg MCHC 33.5 (31.6-35.5) g/dL RDW 13.2 (11.5-14.5) % Plt Count 192 (140-400) K/mcL MPV 9.4 (9.4-12.4) fL Seg Neutrophils % 75.0 % Band Neutrophils % 17.0 H (0-4) % Lymphocytes % 6.0 % Monocytes % 2.0 % Neutrophils # 24.1 H (1.6-8.9) K/mcL Lymphocytes # 1.6 (0.6-4.6) K/mcL Monocytes # 0.5 (0.0-1.3) K/mcL Platelet Estimate Normal (Normal) PT 14.7 H (9.4-12.1) Seconds INR 1.4 Sodium 138 (136-145) mEq/L Potassium 3.3 L (3.5-4.5) mEq/L Chloride 109 (98-109) mEq/L Carbon Dioxide 20 (19-29) mEq/L BUN 11 (8-26) mg/dL Creatinine 0.81 (0.72-1.25) mg/dL Est GFR ( Amer) > 60 (> 60) Est GFR (Non-Af Amer) > 60 (> 60) BUN/Creatinine Ratio 14 (6-26) Glucose 144 H (70-99) mg/dL Calculated Osmolality 288 (280-300) Lactic Acid (0.5-2.2) mmol/L Calcium 8.9 (8.6-10.8) mg/dL Phosphorus 2.0 L (2.3-4.7) mg/dL Magnesium 1.1 L (1.6-2.6) mg/dL Total Bilirubin 1.3 H (0.2-1.2) mg/dL Direct Bilirubin 0.6 H (0.0-0.5) mg/dL Indirect Bilirubin 0.7 (0.0-1.2) mg/dL AST 12 (5-34) Units/L ALT 11 (0-55) Units/L Alkaline Phosphatase 86 (38-126) Units/L Troponin I (0-0.03) ng/mL Serum Total Protein 6.7 (6.0-8.3) g/dL Albumin 2.8 L (3.5-5.0) g/dL Globulin 3.9 H (2.4-3.5) g/dL Albumin/Globulin Ratio 0.7 L (1.1-2.2) 08/09/16 08/09/16 08/09/16 Range/Units 08:38 08:38 10:38 WBC (4.3-11.1) K/mcL RBC (4.19-5.50) M/mcL Hgb (12.9-16.9) g/dL Hct (37.5-50.1) % MCV (83.0-100.0) fL MCH (28.0-33.3) pg MCHC (31.6-35.5) g/dL RDW (11.5-14.5) % Plt Count (140-400) K/mcL MPV (9.4-12.4) fL Seg Neutrophils % % Band Neutrophils % (0-4) % Lymphocytes % % Monocytes % % Neutrophils # (1.6-8.9) K/mcL Lymphocytes # (0.6-4.6) K/mcL Monocytes # (0.0-1.3) K/mcL Platelet Estimate (Normal) PT (9.4-12.1) Seconds INR Sodium (136-145) mEq/L Potassium (3.5-4.5) mEq/L Chloride (98-109) mEq/L Carbon Dioxide (19-29) mEq/L BUN (8-26) mg/dL Creatinine (0.72-1.25) mg/dL Est GFR ( Amer) (> 60) Est GFR (Non-Af Amer) (> 60) BUN/Creatinine Ratio (6-26) Glucose (70-99) mg/dL Calculated Osmolality (280-300) Lactic Acid 2.4 H 3.4 H (0.5-2.2) mmol/L Calcium (8.6-10.8) mg/dL Phosphorus (2.3-4.7) mg/dL Magnesium (1.6-2.6) mg/dL Total Bilirubin (0.2-1.2) mg/dL Direct Bilirubin (0.0-0.5) mg/dL Indirect Bilirubin (0.0-1.2) mg/dL AST (5-34) Units/L ALT (0-55) Units/L Alkaline Phosphatase (38-126) Units/L Troponin I 0.00 (0-0.03) ng/mL Serum Total Protein (6.0-8.3) g/dL Albumin (3.5-5.0) g/dL Globulin (2.4-3.5) g/dL Albumin/Globulin Ratio (1.1-2.2) - Diagnostic Studies Chest x-ray Additional comments: Chest X-Ray 08/09/16 06:35 IMPRESSION: Right lower lobe pneumonia. D/ / John Ibarra MD / John Ibarra MD Interpreting Provider: John Ibarra MD
[2016-08-09] MEDS: Nicotine 14 MG PATCH.TD24 TD SCH (11:51)
[2016-08-09] MEDS: *HR* HYDROcodone/Acet 5/325 mg TABLET PO PRN ×2 (11:51→20:15)
[2016-08-09] MEDS: 0.9 % Sodium Chloride 1,000 ML IVC SCH ×2 (11:52→20:56)
[2016-08-09] MEDS: Ipratropium/Albuterol Neb 3 ML IH SCH ×3 (11:53→23:41)
[2016-08-09 12:03] LABS: Bilirubin,Urine Negative (Negative); Blood,Urine Small (Negative); Clarity,Urine Clear (Clear); Color,Urine Yellow (Yellow); Glucose,Urine (UA) 250 mg/dL (Normal); Ketones,Urine Negative (Negative); Leukocyte Esterase,Urine Negative (Negative); Nitrite,Urine Negative (Negative); Protein,Urine Negative (Neg-Trace); Specific Gravity,Urine 1.013 (1.010-1.025); Urobilinogen,Urine Normal (Normal)
[2016-08-09 12:06] LABS: Bacteria,Urine None Seen per hpf (None-Few); Hyaline Casts,Urine None Seen per lpf (None-Few); Squamous Epithelial Cell,Urine Few per lpf (None-Few)
[2016-08-09] MEDS: Piperacillin/Tazobactam 3.375 GM in D5% in Water (Mini-Bag+) 100 ML IVPB SCH (17:12)
[2016-08-09] MEDS: Vancomycin 1,000 MG in D5% in Water 250 ML IVPB SCH (20:57)
[2016-08-10] MEDS: Piperacillin/Tazobactam 3.375 GM in D5% in Water (Mini-Bag+) 100 ML IVPB SCH ×3 (00:26→15:28)
[2016-08-10] MEDS: *HR* HYDROcodone/Acet 5/325 mg TABLET PO PRN (04:11)
[2016-08-10] MEDS: Ipratropium/Albuterol Neb 3 ML IH SCH ×3 (04:24→16:34)
[2016-08-10 05:11] LABS: Hematocrit 34.1 % (37.5-50.1); Hemoglobin 11.3 g/dL (12.9-16.9); Mean Corpuscular HGB Conc 33.1 g/dL (31.6-35.5); Mean Corpuscular Hemoglobin 31.5 pg (28.0-33.3); Platelet Count 156 K/mcL (140-400); Red Blood Count 3.59 M/mcL (4.19-5.50); Red Cell Distribution Width 13.2 % (11.5-14.5)
[2016-08-10] MEDS: 0.9 % Sodium Chloride 1,000 ML IVC SCH ×2 (05:26→15:28)
[2016-08-10 05:27] LABS: BUN/Creatinine Ratio 13 (6-26); Blood Urea Nitrogen 9 mg/dL (8-26); Calcium 7.7 mg/dL (8.6-10.8); Carbon Dioxide 19 mEq/L (19-29); Chloride 110 mEq/L (98-109); Glucose 114 mg/dL (70-99); Magnesium 1.2 mg/dL (1.6-2.6); Osmolality,Calculated 282 (280-300); Phosphorous 2.6 mg/dL (2.3-4.7); Potassium 3.7 mEq/L (3.5-4.5); Sodium 136 mEq/L (136-145); eGFR For African Americans > 60 (> 60); eGFR For Non-African Americans > 60 (> 60)
[2016-08-10] MEDS: *HR* Enoxaparin 40 MG/0.4 ML SYRINGE SQ SCH (05:27)
[2016-08-10 06:10] LABS: Lymphocytes # 0.7 K/mcL (0.6-4.6); Monocytes # 0.3 K/mcL (0.0-1.3); Neutrophils # 15.1 K/mcL (1.6-8.9)
[2016-08-10 06:11] LABS: Platelet Estimate Normal (Normal)
--- NOTE | 2016-08-10 06:24 | Electrocardiograph Report ---
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
[2016-08-10] MEDS ORDERED: Magnesium Sulfate 2 GM in D5% in Water 100 ML IVPB ONE (07:50)
[2016-08-10] MEDS: Levofloxacin 750 MG/150 ML 750 MG/150 ML BAG IVPB SCH (08:18)
[2016-08-10] MEDS: Vancomycin 1,000 MG in D5% in Water 250 ML IVPB SCH ×2 (08:21→22:52)
[2016-08-10] MEDS: Nicotine 14 MG PATCH.TD24 TD SCH (08:26)
[2016-08-10] MEDS ORDERED: Vancomycin 1,000 MG in D5% in Water 250 ML IVPB SCH (09:00)
--- NOTE | 2016-08-10 09:09 | Internal Med Progress Note ---
Date of Encounter: 08/10/16 Time of Encounter: 09:06 - Assessment and plan (1) HCAP (healthcare-associated pneumonia) Current Visit: Yes Status: Acute Assessment and plan: Patient was recently discharged from the hospital after being treated for spontaneous pneumothorax with right-sided chest tube. Presented with leukocytosis with bandemia, pleuritic chest pain and tachycardia. Chest x-ray reviewed independently-shows right lower lobe infiltrates. Continue IV hydration and broad-spectrum IV antibiotics. Follow-up blood cultures. Supportive care and supplemental oxygen, not requiring oxygen at this time. (2) Sepsis Current Visit: Yes Status: Acute Assessment and plan: Patient presented with tachycardia, leukocytosis with source of infection. Plan for pneumonia as above. Lactic acid noted to be within normal limits. Monitor vital signs closely. Qualifiers: Sepsis type: sepsis due to unspecified organism Qualified Code(s): A41.9 - Sepsis, unspecified organism (3) Anemia Current Visit: Yes Status: Chronic Qualifiers: Anemia type: unspecified type Qualified Code(s): D64.9 - Anemia, unspecified (4) COPD (chronic obstructive pulmonary disease) Current Visit: Yes Status: Chronic Assessment and plan: Not noted to be in acute exacerbation. Continue bronchodilators and supplemental oxygen as needed. Qualifiers: COPD type: unspecified COPD Qualified Code(s): J44.9 - Chronic obstructive pulmonary disease, unspecified (5) Tobacco abuse Current Visit: Yes Status: Chronic Assessment and plan: Continue nicotine transdermal patch. - Subjective Interval history: Feels better; improving right chest pain; no cough, fever, dyspnea; - Constitutional Vitals: Temp Pulse Resp BP Pulse Ox 97.6 F 95 16 92/66 94 08/10/16 06:56 08/10/16 06:56 08/10/16 06:56 08/10/16 06:56 08/10/16 08:28 General appearance: Present: cachectic, A&O X 3, answers questions appropriately - Respiratory Respiratory exam: Present: decreased breath sounds (at right base), rales ( faint crackles at right base). Absent: accessory muscle use, rhonchi, wheezes - Cardiovascular Cardiovascular exam: Present: RRR, +S1, +S2. Absent: diastolic murmur, gallop, rubs, systolic murmur - GI/Abdominal GI/Abdominal exam: Present: normal bowel sounds, soft, no peritoneal signs. Absent: distended, tenderness - Extremities Exam Extremities exam: Present: full ROM, warm, radial pulses palpable and symetrical. Absent: calf tenderness, cyanotic, pedal edema - Neurological Exam Neurological exam: Present: CN II-XII intact, oriented X3, no focal deficits. Absent: pronater drift, facial droop, speech deficit Internal Medicine: Result - Labs CBC & Chem 7: 08/10/16 04:10 08/10/16 04:10 Labs: Short CBC 08/10/16 Range/Units 04:10 WBC 17.1 H (4.3-11.1) K/mcL Hgb 11.3 L D (12.9-16.9) g/dL Hct 34.1 L (37.5-50.1) % Plt Count 156 (140-400) K/mcL Neutrophils # 15.1 H (1.6-8.9) K/mcL BMP 08/10/16 04:10 Sodium 136 Potassium 3.7 Chloride 110 H Carbon Dioxide 19 BUN 9 Creatinine 0.72 Glucose 114 H Calcium 7.7 L Urine 08/09/16 Range/Units 11:45 Urine Color Yellow (Yellow) Urine Clarity Clear (Clear) Urine pH 6.0 (5.0-8.0) pH Units Ur Specific [place] 1.013 (1.010-1.025) Urine Protein Negative (Neg-Trace) mg/dL Urine Glucose (UA) 250 H (Normal) mg/dL - ABG Interpretation ABG results: PT/INR, D-dimer PT 14.7 Seconds (9.4-12.1) H 08/09/16 08:38 - VTE Documentation of Mechanical Device: Graduated compression elastic hosiery Consult Discharge Plan - Plan Referrals: Meliza Cotton CNP [Primary Care Provider] - 08/17/16 11:30 am (web request 08/10/2016)
[2016-08-10] MEDS ORDERED: *HR* HYDROcodone/Acet 10/325 mg TABLET PO PRN (12:31)
[2016-08-10] MEDS ORDERED: *HR* Metoprolol 5 MG/5 ML VIAL IVP ONE (17:56)
[2016-08-10] MEDS ORDERED: 0.9 % Sodium Chloride 250 ML IVC ONE (18:29)
[2016-08-10] MEDS ORDERED: Ipratropium/Albuterol Neb 3 ML IH PRN (18:30)
[2016-08-10] MEDS: Vancomycin 1,250 MG in D5% in Water 250 ML IVPB SCH (22:49)
[2016-08-11] MEDS: Piperacillin/Tazobactam 3.375 GM in D5% in Water (Mini-Bag+) 100 ML IVPB SCH ×2 (00:15→08:51)
[2016-08-11] MEDS: *HR* HYDROcodone/Acet 5/325 mg TABLET PO PRN (04:10)
[2016-08-11 05:12] LABS: Hematocrit 33.4 % (37.5-50.1); Hemoglobin 11.3 g/dL (12.9-16.9); Immature Granulocytes % 1.4 % (0-4); Immature Platelets 4.2 % (1.1-6.1); Mean Corpuscular HGB Conc 33.8 g/dL (31.6-35.5); Mean Corpuscular Hemoglobin 31.3 pg (28.0-33.3); Mean Corpuscular Volume 92.5 fL (83.0-100.0); Mean Platelet Volume 10.3 fL (9.4-12.4); Monocytes % 4.6 %; Platelet Count 151 K/mcL (140-400); Red Blood Count 3.61 M/mcL (4.19-5.50); Red Cell Distribution Width 13.2 % (11.5-14.5); Segmented Neutrophils % 88.9 %
[2016-08-11 05:13] LABS: Basophils % 0.1 %; Eosinophils # 0.3 K/mcL (0.0-0.6); Lymphocytes # 0.5 K/mcL (0.6-4.6); Monocytes # 0.7 K/mcL (0.0-1.3); Neutrophils # 14.2 K/mcL (1.6-8.9)
[2016-08-11 05:25] LABS: BUN/Creatinine Ratio 9 (6-26); Blood Urea Nitrogen 6 mg/dL (8-26); Calcium 8.4 mg/dL (8.6-10.8); Carbon Dioxide 19 mEq/L (19-29); Chloride 108 mEq/L (98-109); Glucose 102 mg/dL (70-99); Magnesium 1.5 mg/dL (1.6-2.6); Osmolality,Calculated 280 (280-300); Potassium 3.3 mEq/L (3.5-4.5); Sodium 136 mEq/L (136-145); eGFR For African Americans > 60 (> 60); eGFR For Non-African Americans > 60 (> 60)
[2016-08-11 05:51] LABS: Platelet Estimate Normal (Normal)
[2016-08-11] MEDS: *HR* Enoxaparin 40 MG/0.4 ML SYRINGE SQ SCH (06:05)
[2016-08-11] MEDS: 0.9 % Sodium Chloride 1,000 ML IVC SCH (06:05)
[2016-08-11] MEDS: Levofloxacin 750 MG/150 ML 750 MG/150 ML BAG IVPB SCH (08:51)
[2016-08-11] MEDS: Nicotine 14 MG PATCH.TD24 TD SCH (08:52)
[2016-08-11] MEDS ORDERED: Magnesium Sulfate 2 GM in D5% in Water 100 ML IVPB ONE (10:53)
[2016-08-11] MEDS ORDERED: Potassium Chloride Elixir 20 MEQ/15 ML UDC PO ONE (10:53)
[2016-08-11 11:06] VITALS: BP 121/83
[2016-08-11] MEDS: Vancomycin 1,250 MG in D5% in Water 250 ML IVPB SCH (12:14)
--- NOTE | 2016-08-11 12:59 | Discharge Summary ---
Date of Encounter: 08/11/16 Time of Encounter: 11:40 - Discharge Diagnosis (1) HCAP (healthcare-associated pneumonia) Priority: Primary Status: Acute (2) Sepsis Priority: Primary Status: Acute Qualifiers: Sepsis type: sepsis due to unspecified organism Qualified Code(s): A41.9 - Sepsis, unspecified organism (3) Anemia Priority: Secondary Status: Chronic Qualifiers: Anemia type: unspecified type Qualified Code(s): D64.9 - Anemia, unspecified (4) COPD (chronic obstructive pulmonary disease) Priority: Secondary Status: Chronic Qualifiers: COPD type: unspecified COPD Qualified Code(s): J44.9 - Chronic obstructive pulmonary disease, unspecified (5) Tobacco abuse Priority: Secondary Status: Chronic - Discharge Medications Prescriptions: Levofloxacin [Levaquin] 750 mg PO DAILY #10 tablet Home Medications: Levofloxacin [Levaquin] 750 mg PO DAILY #10 tablet 08/11/16 [Rx] Allergies/Adverse Reactions: Allergies No Known Allergies Allergy (Verified 08/09/16 06:11) Date of admission: 08/09/16 11:08 Primary care physician: Meliza Cotton Discharging clinician: Marilou Garcia Anticipated date of discharge: 08/11/16 - Patient Status Disposition: Home, Self-Care Condition: Fair Functional capacity at discharge: independent ambulation Overall status at discharge: patient is progressing back to baseline - Discharge Instructions Instructions: How to Stop Smoking (GEN), Chronic Obstructive Pulmonary Disease (DC), Pneumonia (DC) Follow Up With: Melzia Cotton CNP [Primary Care Provider] - 08/17/16 11:30 am (web request 08/10/2016) - Diet and Activity Activity: resume usual activities as tolerated Diet: advance to your usual diet Hospital course: Mr. Eubanks is a 60 year old male admitted with worsening right-sided chest and trunk pain. Patient was recently discharged from the hospital after being treated with chest tube for right-sided spontaneous pneumothorax. Chest x-ray done in the emergency room revealed right lower lobe infiltrates and patient was started on broad-spectrum IV antibiotics for possible healthcare associated pneumonia. He was noted to have fever, tachycardia, leukocytosis with bandemia at admission. He gradually responded to IV hydration and antibiotics with improving leukocytosis and resolved fever and bandemia. He had an episode of sinus tachycardia in 120s, which responded to IV hydration and a dose of IV metoprolol. Blood cultures remained negative. Patient was noted to have hypokalemia and hypomagnesemia at the time of admission, which were supplemented. Patient is currently medically stable for discharge with oral antibiotics and outpatient follow-up. He does have history of right lung cancer status post resection and he continues to smoke at least half pack per day of cigarettes and he is strongly counseled to consider smoking cessation and he verbalized understanding. - Time Spent with Patient Total time spent providing and/or coordinating discharge services: Greater than 30 minutes (45 min) - Constitutional Vitals: Temp Pulse Resp BP Pulse Ox 98.2 F 102 17 121/83 94 08/11/16 11:01 08/11/16 11:01 08/11/16 11:01 08/11/16 11:01 08/11/16 11:01 General appearance: Present: cachectic, A&O X 3 (appears tired), answers questions appropriately - Respiratory Respiratory exam: Present: decreased breath sounds (at right base), CTAB. Absent: accessory muscle use, rales, rhonchi, wheezes - VTE Documentation of Mechanical Device: Graduated compression elastic hosiery
[2016-08-11] MEDS ORDERED: Aminoglycoside Consult 1 EACH MC ONE (15:49)
== END 2016-08-11 15:50 | disposition home or self-care (01) | DRG 871 ==
LOC: EMEROO 06:09 → 2ANU 06:09
PROVIDERS: ADMIT Internal Medicine; ATTEND Internal Medicine